=== PATIENT | male | born 1990 | race Hispanic/Latino ===

== ENCOUNTER 2020-04-24 12:04 | Emergency (ER) | payer SELFPAY ==
--- NOTE | ~2020-04-24 | CT_ITS ---
EXAMINATION: CT abdomen pelvis w con DATE: 04/24/2020 13:57 INDICATION: Right-sided abdominal pain. TECHNIQUE: Computed tomography (CT) of the abdomen and pelvis was performed with 100 mL Omnipaque 350 intravenous contrast. Automated exposure control and iterative reconstruction technique were employe d. The dose-length product was 460.23 mGy-cm. COMPARISON: None. FINDINGS: The visualized portions of the lung bases are clear without pneumonia or pleural effusion. The heart size is normal. No pericardial effusion. The liver, gallbladder, spleen, pancreas, adrenal glands, and kidneys are normal. There are no dilated loops of bowel. The appendix is normal. There ar e no pathologically enlarged lymph nodes. There is no free intraperitoneal fluid. There is mild lumba r spondylosis. IMPRESSION: 1. No etiology for the patient's symptoms. Reviewed, dictated and finalized at location A. E CHANNELER
[2020-04-24 12:09] VITALS: BP 165/105; PULSE 94; RESP 14; TEMP 36.9; O2SAT 99
[2020-04-24 12:51] LABS: Add Urine Microscopic? YES; Appearance Urine Clear (Clear); Bacteria Urine Trace /hpf; Bilirubin Urine Negative (Negative); Blood Urine Negative (Negative); Color Urine Yellow (Yellow); Glucose Urine UA Negative (Negative); Ketones Urine Negative (Negative); Leukocyte Esterase Ur Negative LEU/UL (Negative); Mucus Urine Rare /lpf; Nitrate Urine Negative (Negative); Protein Urine 1+ mg/dL (Negative); RBC Urine 0-2 /hpf (0-2); Urobilinogen Urine Negative mg/dL (<2.0); WBC Urine 0-3 /hpf
--- NOTE | 2020-04-24 13:09 | ED.CHESTPAIN ---
HPI - Chest Pain General Chief Complaint: Urogenital-Male Stated Complaint: unknown Time Seen by Provider: 04/24/20 12:21 Source: patient and family Mode of arrival: ambulatory Limitations: no limitations History of Present Illness HPI narrative: Patient is a 29-year-old male who presents to emergency department for evaluation of burning with urination and abdominal discomfort for the last 4 days denies injury or trauma or similar occurrence in the past patient is a limited story and secondary to language so a retail asset protection specialist was utilized patient notes discomfort that is remained constant worse with urination denies blood in the urine or stool or other symptoms or concerns presents in no distress Related Data Allergies Allergy/AdvReac Type Severity Reaction Status Date / Time No Known Allergies Allergy Verified 04/24/20 12:13 Course Course Emergency Course: Patient was evaluated in the emergency department without any high risk changes in the blood work or imaging was given the option for treatment for STD would like to be treated and will follow with primary care for further evaluation and agrees to return if symptoms worsen or concerns patient is afebrile nontoxic-appearing no distress and felt appropriate for outpatient reevaluation Vital Signs Vital signs: Vital Signs Temperature 98.4 F 04/24/20 12:09 Pulse Rate 94 04/24/20 12:09 Respiratory Rate 14 04/24/20 12:09 Blood Pressure 165/105 H 04/24/20 12:09 Pulse Oximetry 99 04/24/20 12:09 Temperature 98.4 F 04/24/20 12:09 Pulse Rate 94 04/24/20 12:09 Respiratory Rate 14 04/24/20 12:09 Blood Pressure 165/105 H 04/24/20 12:09 Pulse Oximetry 99 04/24/20 12:09 MDM - Chest Pain MDM Narrative Medical decision making narrative: Patient presented with dysuria patient notes he feels as though he needs to urinate patient without high risk changes in the blood work or imaging felt appropriate for outpatient reevaluation was tested for gonorrhea and chlamydia as well would like to be treated for this while waiting for follow-up Lab Data Result diagrams: 04/24/20 13:11 04/24/20 13:11 Labs: Lab Results 04/24/20 04/24/20 04/24/20 Range/Units 12:23 13:11 13:11 WBC 6.0 (4.5-10.0) K/mm3 RBC 5.16 (4.6-6.20) M/mm3 Hgb 17.4 (14.0-18.0) g/dL Hct 49.7 (42.0-52.0) % MCV 96.3 (80-100) fl MCH 33.7 (26-34) pg MCHC 35.0 (32-36) g/dl RDW 12.2 (11.5-14.5) % Plt Count 183 (150-375) k/mm3 MPV 10.6 H (7.4-10.4) fl Immature Gran % (Auto) 0.2 (0-0.5) % Neut % (Auto) 67.6 (45.5-73.1) % Lymph % (Auto) 24.4 (18.3-44.2) % [place] % (Auto) 6.0 (2.6-8.5) % Eos % (Auto) 1.5 (0-4.4) % Baso % (Auto) 0.3 (0.2-1.2) % Lymph # (Auto) 1.46 (0.9-3.2) K/mm3 [place] # (Auto) 0.4 (0.1-0.6) K/mm3 Eos # (Auto) 0.1 (0-0.3) K/mm3 Baso # (Auto) 0.0 (0.0-0.1) K/mm3 Abs Immat Gran (auto) 0.01 (0.00-0.031) K/mm3 Absolute Neuts (auto) 4.0 (1.3-6.7) K/mm3 Absolute Nucleated RBC 0.0 (0.0-0.012) K/mm3 Nucleated RBC % 0.0 (0.0-0.2) % Sodium 140 (137-145) mmol/L Potassium 4.5 (3.4-5.0) mmol/L Chloride 102 (98-107) mmol/L Carbon Dioxide 31 H (22-30) mmol/L Anion Gap 7 L (8-16) mmol/L BUN 11 (9-20) mg/dL Creatinine 0.70 (0.7-1.3) mg/dL Estim Creat Clear Calc Not Reportable Estimated GFR > 60 (59 - ) Glucose 100 (75-110) mg/dL Calcium 9.6 (8.4-10.2) mg/dL Total Bilirubin 1.0 (0.2-1.3) mg/dL AST 41 (17-59) U/L ALT 71 H (4-50) U/L Alkaline Phosphatase 80 (38-126) U/L Total Protein 8.0 (6.3-8.2) g/dL Albumin 5.0 (3.5-5.1) g/dL Lipase 41 (23-300) U/L Urine Color Yellow (Yellow) Urine Appearance Clear (Clear) Urine pH 7.0 (5.0-9.0) Ur Specific [place] 1.020 (1.001-1.035) Urine Protein 1+ H (Negative) mg/dL Urine Glucose (UA) Negative (Negative)
[2020-04-24 13:18] LABS: Basophils Percent Auto 0.3 % (0.2-1.2); Eosinophils Absolute Auto 0.1 K/mm3 (0-0.3); Eosinophils Percent Auto 1.5 % (0-4.4); Hematocrit 49.7 % (42.0-52.0); Hemoglobin 17.4 g/dL (14.0-18.0); Immature Granulocyte Absolute 0.01 K/mm3 (0.00-0.031); Immature Granulocyte Percent A 0.2 % (0-0.5); Lymphocytes Absolute Auto 1.46 K/mm3 (0.9-3.2); Lymphocytes Percent Auto 24.4 % (18.3-44.2); Mean Corpuscular Hemoglobin 33.7 pg (26-34); Mean Corpuscular Volume 96.3 fl (80-100); Mean Platelet Volume 10.6 fl (7.4-10.4); Monocytes Absolute Auto 0.4 K/mm3 (0.1-0.6); Neutrophils Percent Auto 67.6 % (45.5-73.1); Platelet Count Result 183 k/mm3 (150-375); Red Blood Count 5.16 M/mm3 (4.6-6.20); Red Cell Distribution Width 12.2 % (11.5-14.5)
[2020-04-24] MEDS: SODIUM CHLORIDE 0.9% IV 1,000 ML 999 ML IV CONT (13:26)
[2020-04-24 13:35] LABS: Alanine Aminotransferase 71 U/L (4-50); Alkaline Phosphatase 80 U/L (38-126); Anion Gap 7 mmol/L (8-16); Aspartate Amino Transferase 41 U/L (17-59); Blood Urea Nitrogen 11 mg/dL (9-20); Calcium 9.6 mg/dL (8.4-10.2); Carbon Dioxide 31 mmol/L (22-30); Chloride 102 mmol/L (98-107); Estimated Glomerular Filt Rate > 60; Glucose 100 mg/dL (75-110); Lipase 41 U/L (23-300); Potassium 4.5 mmol/L (3.4-5.0); Sodium 140 mmol/L (137-145)
== END 2020-04-24 14:45 | disposition home or self-care (01) ==
PROVIDERS: Emergency Medicine Emergency Medical Services; Emergency Provider Emergency Medicine
DX: R30.0 Dysuria (principal)
CPT/HCPCS: 36415; 74177; 80053; 81001; 83690; 85025; 96360; 99284; J7030; Q9967

== ENCOUNTER 2020-05-31 14:25 | Outpatient (CLI) | payer SELFPAY ==
--- NOTE | ~2020-05-31 | CT_ITS ---
EXAMINATION: CT abdomen pelvis wo con DATE: 05/31/2020 14:46 INDICATION: Left flank pain. Hematuria. TECHNIQUE: Computed tomography (CT) of the abdomen and pelvis was performed without intravenous contr ast. The dose-length product was 348.56 mGy-cm. Automated exposure control and iterative reconstructi on technique were employed. COMPARISON: CT dated 04/24/2020. FINDINGS: Lung bases are unremarkable. Heart size normal. No significant pleural or pericardial effus ion. Small hiatal hernia. No significant vascular abnormality. No renal or ureteral stones are identified. No hydronephrosis. The liver, spleen, pancreas, adrenal g lands and kidneys are unremarkable. Gallbladder is present. Nonobstructive bowel gas pattern. No free air or free fluid. No acute osseous abnormality. IMPRESSION: 1. No acute abdominal abnormality. No findings to account for hematuria. Reviewed, dictated and finalized at location A. [employer]
== END 2020-05-31 14:26 ==
PROVIDERS: Visit Provider Urology
DX: N20.1 Calculus of ureter (principal)
CPT/HCPCS: 74176